=== PATIENT | male | born 2000 | race African-American/Black ===

== ENCOUNTER 2019-08-14 04:40 | Emergency (ER) | payer OTHER ==
[~2019-08-14] VITALS: Ht 185.4 cm; Wt 109.2 kg
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
[2019-08-14] MEDS ORDERED: IBUPROFEN 600 MG TAB PO ONE (06:30)
[2019-08-14] MEDS ORDERED: ADACEL/BOOSTRIX VACCINE (DIPHTH/PERTUSS/ACELL/TETANUS)0.5ML SYR (90715) IM ONE (06:30)
[2019-08-14] MEDS ORDERED: LIDOCAINE 1% MDV 20ML VIAL INFIL ONE (07:15)
[2019-08-14 08:43] VITALS: BP 124/63
[2019-08-14] MEDS ORDERED: KEFL500C17 PO ×2 (08:54→09:18)
--- NOTE | 2019-08-15 18:32 | ED PDOC ---
Post-Departure Follow-Up ft [facility] faxed formal report of ct max fac for fu Kirsten Lopez MD Aug 15, 2019 18:32
== END 2019-08-14 09:21 | disposition home or self-care (01) ==
LOC: M ED 04:40
DX: S02.2XXB Fracture of nasal bones, initial encounter for open fracture (principal); S02.401A Maxillary fracture, unspecified side, initial encounter for closed fracture; Y04.8XXA Assault by other bodily force, initial encounter; Y92.89 Other specified places as the place of occurrence of the external cause

== ENCOUNTER → 2019-10-16 | Outpatient (CLI) | payer OTHER ==
[~2019-10-16] MED LIST: KEFL500C17 PO
== END ==
LOC: M LABSMTC 09:58
PROVIDERS: ATTEND Anesthesiology
DX: Z01.818 Encounter for other preprocedural examination (principal); Z11.59 Encounter for screening for other viral diseases
CPT/HCPCS: C9803; U0003

== ENCOUNTER 2019-10-19 06:39 | Day surgery (SDC) | payer OTHER ==
[~2019-10-19] VITALS: Ht 185.4 cm; Wt 108.9 kg
[2019-10-19] MEDS ORDERED: LIDOCAINE 2% 100MG/5ML SDV (FOR ANES.) As Ordered ONE (07:18)
[2019-10-19] MEDS ORDERED: propofoL 200 MG/20 ML VIAL As Ordered ONE ×2 (07:18→07:20)
[2019-10-19] MEDS ORDERED: ROCURONIUM BROMIDE 50 MG/5 ML VIAL As Ordered ONE (07:19)
[2019-10-19] MEDS ORDERED: ONDANSETRON 4MG/2ML VIAL As Ordered ONE (07:19)
[2019-10-19] MEDS ORDERED: dexameTHASONE 4 MG/ML 1ML VIAL (J1100 PER 1MG) As Ordered ONE (07:19)
[2019-10-19] MEDS ORDERED: fentaNYL 100 MCG/2 ML INJECTION (J3010) As Ordered ONE ×2 (07:19→08:52)
[2019-10-19] MEDS ORDERED: MIDAZOLAM INJ 2MG/2ML VIAL (J2250 PER 1MG) As Ordered ONE ×2 (07:19→08:24)
[2019-10-19] MEDS ORDERED: ACETAMINOPHEN 1000MG 100ML IV BTL (OFIRMEV) (J0131 PER 10MG) As Ordered ONE (08:12)
[2019-10-19] MEDS ORDERED: METOCLOPRAMIDE INJ 10MG/2ML VIAL (J2765 PER 1) As Ordered ONE (08:53)
[2019-10-19] MEDS ORDERED: SUGAMMADEX SODIUM 500 MG/5 ML VIAL (BRIDION) As Ordered ONE (09:15)
[2019-10-19] MEDS ORDERED: EPINEPHrine 1MG/ML INJ 30ML MD-VIAL As Ordered ONE (09:46)
[2019-10-19] MEDS ORDERED: METHYLENE BLUE 0.5% (5MG/ML) 10 ML AMP (PROVAYBLUE)(Q9968 PER 1MG) As Ordered ONE (09:46)
[2019-10-19] MEDS ORDERED: LIDOCAINE W/EPINEPHRINE 1% 20ML VIAL As Ordered ONE (09:46)
[2019-10-19] MEDS ORDERED: ONDANSETRON 4MG/2ML VIAL IV PRN (10:00)
[2019-10-19] MEDS ORDERED: METOCLOPRAMIDE INJ 10MG/2ML VIAL (J2765 PER 1) IV PRN (10:00)
[2019-10-19] MEDS ORDERED: LR 1,000 ML IV SCH (10:00)
[2019-10-19] MEDS ORDERED: PERCOCET 5MG/325MG TAB PO PRN (10:00)
[2019-10-19] MEDS ORDERED: fentaNYL 100 MCG/2 ML INJECTION (J3010) IV PRN (10:00)
[2019-10-19] MEDS ORDERED: PERCOCET 5MG/325MG TAB As Ordered ONE (11:45)
[2019-10-19 12:45] VITALS: BP 114/68
--- NOTE | 2019-10-21 10:49 | RO ---
DATE OF PROCEDURE: 10/19/2019 PREOPERATIVE DIAGNOSES: Nasal septal deviation and chronic rhinitis. POSTOPERATIVE DIAGNOSES: Nasal septal deviation and chronic rhinitis. OPERATIVE PROCEDURE: Septoplasty and bilateral turbinectomy. SURGEON: Dr. Ghassan Machado INVESTIGATION CLERK: ANESTHESIA: General. DESCRIPTION OF PROCEDURE: Under general anesthesia with the patient intubated, the patient draped in the usual manner, I used pledgets of adrenaline 1:1000 and infiltrated with lidocaine with epinephrine. I made an incision on the left side, elevated subperichondrial plane. I then elevated the mucosa off from both sides of the quadrangular cartilage. I cartilage from the ethmoid plate. I then the quadrangular cartilage from maxillary crest, removed the inferior portion. I then freed up the anterior portion. Once this was done, the anterior part of the septum, which was deviated towards the right side of this done, the anterior part of the septum, which was deviated towards the right side and mobilized to the midline. I closed that wound with interrupted #3-0 chromic suture. Then, I made an incision anterior to the inferior turbinate on both sides. I elevated the mucoperiosteum. Then, I used the microdebrider and then I removed portion of the reese anteriorly on both sides. I closed those incisions with #4-0 Vicryl. Patient tolerated procedure well. Patient extubated and then transferred to the recovery room in excellent condition.
== END 2019-10-19 12:50 | disposition home or self-care (01) ==
LOC: M SDC 06:39
PROVIDERS: ATTEND Otolaryngology
DX: J34.2 Deviated nasal septum (principal); J31.0 Chronic rhinitis
CPT/HCPCS: 30140; 30520; J0131; J1100; J2250; J2405; J2765; J3010; Q9968

== ENCOUNTER 2020-02-29 07:15 | Emergency (ER) | payer OTHER ==
[~2020-02-29] VITALS: Ht 185.4 cm; Wt 105.4 kg
[2020-02-29] MEDS ORDERED: ACETAMINOPHEN 500 MG TAB PO ONE (08:00)
[2020-02-29 08:04] VITALS: O2SAT 97
[2020-02-29 08:24] LABS: BASO % 0.6 % (0.0-1.0); EOS # 0.1 10^3/uL (0.0-0.5); EOS % 4.3 % (0.0-3.0); HEMATOCRIT 44.3 % (42.0-52.0); HEMOGLOBIN 15.3 g/dl (13.5-17.5); LYMPH # 1.2 10^3/uL (1.5-5.0); LYMPH % 37.3 % (24.0-44.0); MEAN CORPUSCULAR HEMOGLOBIN 29.3 pg (27.0-33.0); MEAN CORPUSCULAR HGB CONC 34.5 g/dl (32.0-36.5); MEAN CORPUSCULAR VOLUME 84.7 fl (80.0-96.0); MONO # 0.4 10^3/uL (0.0-0.8); MONO % 11.5 % (0.0-5.0); NEUTROPHILS # 1.5 10^3/uL (1.5-8.5); PLATELET COUNT, AUTOMATED 211 10^3/uL (150-450); RED BLOOD COUNT 5.23 10^6/uL (4.30-6.10); WHITE BLOOD COUNT 3.2 10^3/uL (4.0-10.0)
[2020-02-29 08:45] LABS: BLOOD UREA NITROGEN 11 MG/DL (7-18); CALCIUM LEVEL 8.7 MG/DL (8.5-10.1); CARBON DIOXIDE LEVEL 27 MEQ/L (21-32); CHLORIDE LEVEL 109 MEQ/L (98-107); CK-MB VALUE MASS 1.5 NG/ML (<3.6); CPK CREATINE PHOSPHOKINASE 312 U/L (39-308); CREATININE FOR GFR 1.21 MG/DL (0.70-1.30); GLOMERULAR FILTRATION RATE > 60.0 (>60); GLUCOSE, FASTING 116 MG/DL (70-100); MB/CK RELATIVE INDEX 0.48 (< OR =4); POTASSIUM SERUM 3.8 MEQ/L (3.5-5.1); SODIUM LEVEL 142 MEQ/L (136-145); TROPONIN I < 0.02 NG/ML (< 0.10)
[2020-02-29] MEDS ORDERED: ALBUTEROL 90 MCG/ACT 8GM HFA INHALER INH ONE (09:15)
--- NOTE | 2020-02-29 09:28 | REPVR ---
PROCEDURE INFORMATION: Exam: XR Chest, 2 Views Exam date and time: 02/29/2020 7:42 AM Age: 19 years old Clinical indication: Shortness of breath; Additional info: Cough, SOB TECHNIQUE: Imaging protocol: XR of the chest Views: 2 views. COMPARISON: No relevant prior studies available. FINDINGS: Lungs: Unremarkable. No consolidation. Pleural space: Unremarkable. No pleural effusion. No pneumothorax. Heart/Mediastinum: Unremarkable. No cardiomegaly. Bones/joints: Unremarkable. IMPRESSION: No acute abnormalities are identified. Electronically signed by: Renny Ravi On 02/29/2020 09:27:43 AM
[2020-02-29] MEDS ORDERED: TESS100C PO (10:07)
[2020-02-29] MEDS ORDERED: PROAAER10 INH (10:07)
[2020-02-29 10:14] VITALS: BP 129/73
== END 2020-02-29 10:22 | disposition home or self-care (01) ==
LOC: M ED 07:15
DX: J02.9 Acute pharyngitis, unspecified (principal); B34.9 Viral infection, unspecified

== ENCOUNTER 2020-04-08 20:53 | Emergency (ER) | payer OTHER ==
[~2020-04-08] VITALS: Ht 185.4 cm; Wt 105.3 kg
[~2020-04-08 20:53] MED LIST changes: +PROAAER10 INH; +TESS100C PO
[2020-04-08 20:54] VITALS: BP 135/83
--- NOTE | 2020-04-08 21:46 | REPVR ---
PROCEDURE INFORMATION: Exam: XR Left Ankle Exam date and time: 04/08/2020 9:00 PM Age: 20 years old Clinical indication: Pain; Ankle; Left; Additional info: Fall, ankle pain, swelling TECHNIQUE: Imaging protocol: XR Left ankle. Views: 3 or more views. COMPARISON: No relevant prior studies available. FINDINGS: Bones/joints: Normal. Soft tissues: Normal. IMPRESSION: No acute fracture or dislocation within the left ankle. Electronically signed by: Zurdo Wright On 04/08/2020 21:45:39 PM
[2020-04-08] MEDS ORDERED: IBUPROFEN 600MG TAB PO ONE (22:30)
== END 2020-04-08 22:39 | disposition home or self-care (01) ==
LOC: M ED 20:53
DX: S93.402A Sprain of unspecified ligament of left ankle, initial encounter (principal); X50.9XXA Other and unspecified overexertion or strenuous movements or postures, initial encounter; Y92.410 Unspecified street and highway as the place of occurrence of the external cause; Y93.02 Activity, running; Y99.8 Other external cause status

== ENCOUNTER 2021-03-08 01:58 | Emergency (ER) | payer OTHER ==
[~2021-03-08] VITALS: Ht 185.4 cm; Wt 107.2 kg
[2021-03-08] MEDS ORDERED: LIDOCAINE 2% MDV 20ML VIAL SC ONE (07:55)
[2021-03-08] MEDS ORDERED: BOOSTRIX/ADACEL VACCINE (DIPHTH/PERTUSS/ACELL/TETANUS) 0.5ML SYR IM ONE (07:55)
[2021-03-08 08:29] VITALS: BP 127/78
== END 2021-03-08 08:38 | disposition home or self-care (01) ==
LOC: M ED 01:58
DX: S61.512A Laceration without foreign body of left wrist, initial encounter (principal); W26.8XXA Contact with other sharp object(s), not elsewhere classified, initial encounter; Y92.89 Other specified places as the place of occurrence of the external cause; Y99.0 Civilian activity done for income or pay; F12.20 Cannabis dependence, uncomplicated

== ENCOUNTER 2021-03-13 19:50 | Emergency (ER) | payer OTHER ==
[~2021-03-13] VITALS: Ht 185.4 cm; Wt 104.9 kg
[2021-03-13 19:50] VITALS: BP 125/67
== END 2021-03-13 21:58 | disposition left against medical advice (07) ==
LOC: M ED 19:50
DX: Z53.29 Procedure and treatment not carried out because of patient's decision for other reasons (principal)

== ENCOUNTER 2021-03-19 07:37 | Emergency (ER) | payer OTHER ==
[~2021-03-19] VITALS: Ht 185.4 cm; Wt 103.2 kg
--- OUTSIDE RECORDS SUMMARY | 2021-03-19 07:42 | CCD ---
Author Author [facility] Organization [facility] Address Unknown Phone Unavailable Support Name Relationship Address Phone [employer] Next Of Kin [address] [place], [place] [id number] [email or web address] Next Of [place] [address] Unavailable Re-disclosure Warning The records that you are about to access may contain information from federally-assisted alcohol or drug abuse programs. If such information is present, then the following federally mandated warning applies: This information has been disclosed to you from records protected by federal confidentiality rules (42 CFR part 2). The federal rules prohibit you from making any further disclosure of this information unless further disclosure is expressly permitted by the written consent of the person to whom it pertains or as otherwise permitted by 42 CFR part 2. A general authorization for the release of medical or other information is NOT sufficient for this purpose. The Federal rules restrict any use of the information to criminally investigate or prosecute any alcohol or drug abuse patient.The records that you are about to access may contain highly sensitive health information, the redisclosure of which is protected by Article 27-F of the [facility] Public Health law. If you continue you may have access to information: Regarding HIV / AIDS; Provided by facilities licensed or operated by the [facility] Office of Mental Health; or Provided by the [facility] Office for People With Developmental Disabilities. If such information is present, then the following [facility] mandated warning applies: This information has been disclosed to you from confidential records which are protected by state law. State law prohibits you from making any further disclosure of this information without the specific written consent of the person to whom it pertains, or as otherwise permitted by law. Any unauthorized further disclosure in violation of state law may result in a fine or [place] [facility] sentence or both. A general authorization for the release of medical or other information is NOT sufficient authorization for further disc losure. Medications No Information Insurance Providers Payer name Policy type / Coverage type Policy ID Covered alliance party ID Covered alliance party's relationship to deleon Policy Deleon Plan Information [employer] [id number] SP [id number] [facility] ACTIVE DUTY [id number] SP [id number] [employer] [facility] REG O [id number] S [id number] Problems, Conditions, and Diagnoses No Information Surgeries/Procedures No Information Results ID Date Data Source [id number] 06/15/2020 08:28:00 AM EST [facility] Name Value Range Interpretation Code Description Data Minerva rce(s) Supporting Document(s) SARS coronavirus 2 RNA Not Detected [facility] [place] This lab was ordered by [facility] and reported by [facility]. Procedure Social History No Information
[2021-03-19] MEDS ORDERED: DERMABOND TOPICAL SKIN ADHESIVE TOP ONE (09:10)
--- OUTSIDE RECORDS SUMMARY | 2021-03-19 09:19 | CCD ---
Author Author [facility] Organization [facility] Address Unknown Phone Unavailable Support Name Relationship Address Phone [employer] Next Of Kin [address] [place], [place] [id number] [employer] Next [place] [address] Unavailable Re-disclosure Warning The records that you [...] is protected by Article 27-F of the [facility] Public Health law. If you continue you may have access to information: Regarding HIV / AIDS; Provided by facilities licensed or operated by the [facility] Office of Mental Health; or Provided by the [facility] Office for People With Developmental Disabilities. If such information is present, then the following [facility] mandated warning applies: This information has been [...] law may result in a fine or halfway sentence or both. A general authorization for the release of medical or other information is NOT sufficient authorization for further disc losure. Medications No Information Insurance Providers Payer name Policy type / Coverage type Policy ID Covered republican ID Covered republican's relationship to deleon Policy Deleon Plan Information [employer] [id number] SP [id number] [facility] ACTIVE DUTY [id number] SP [id number] [employer] [facility] REG O [id number] S [id number] Problems, Conditions, and Diagnoses No Information Surgeries/Procedures No Information Results ID Date Data Source [id number] 06/15/2020 08:28:00 AM EST [facility] Name Value Range Interpretation Code Description Data Minerva rce(s) Supporting Document(s) SARS coronavirus 2 RNA Not Detected [facility] This lab was ordered by [facility] and reported by [facility]. Procedure Social History No Information
[2021-03-19 09:24] VITALS: BP 137/75
== END 2021-03-19 09:31 | disposition home or self-care (01) ==
LOC: M ED 07:37
DX: Z48.02 Encounter for removal of sutures (principal); S61.512D Laceration without foreign body of left wrist, subsequent encounter; X58.XXXD Exposure to other specified factors, subsequent encounter; Y92.89 Other specified places as the place of occurrence of the external cause